=== PATIENT | female | born 1955 | race Caucasian/White ===

== ENCOUNTER → 2022-10-25 | Outpatient (CLI) | payer MEDICARE, BC ==
[~2022-10-25] MED LIST: GADOBENATE DIMEGLUMINE 1 ML IV ONE
[2022-10-25 11:29] LABS: CREATININE, SERUM 1.07 mg/dL (0.57-1.11)
== END ==
LOC: MRI 10:18
PROVIDERS: ATTEND Psychiatry & Neurology Neurology
DX: R20.8 Other disturbances of skin sensation (principal)
CPT/HCPCS: 36415; 70553; 82565; 84520; A9577